=== PATIENT | female | born 1960 | race Caucasian/White ===

== ENCOUNTER 2023-06-26 09:30 | Emergency (ER) | payer MEDICARE, SELFPAY ==
[2023-06-26 09:36] VITALS: BP 143/85; PULSE 86; RESP 15; TEMP 36.7; O2SAT 97; BMI 24.7
--- NOTE | 2023-06-26 09:38 | DI.RAD.S_ITS ---
PROCEDURE: XR CHEST 1V INDICATIONS: chest pain TECHNIQUE: One view of the chest was acquired. COMPARISON: None. FINDINGS: Surgical changes and devices: None. Lungs and pleura: Lungs are clear. No pleural effusions or pneumothorax. Mediastinum: Mediastinal contours appear normal. Heart size is normal. Bones and chest wall: No suspicious bony lesions. Overlying soft tissues appear unremarkable. IMPRESSION: No acute cardiopulmonary abnormality is seen. Dictated by: Slava Garcia M.D. on 06/26/2023 at 10:32 Approved by: Slava Gracia M.D. on 06/26/2023 at 10:33
[2023-06-26 09:55] LABS: Add Manual Diff / Slide Review NO; Basophils Absolute Auto 100 /uL (0-100); Eosinophils Absolute Auto 0 /uL (0-450); Eosinophils Percent Auto 0.7 % (2-4); Hematocrit 40.6 % (36-46); Hemoglobin 14.2 g/dL (12.0-16.0); Lymphocytes Absolute Auto 1100 /uL (1100-4500); Lymphocytes Percent Auto 18.2 % (25-40); Mean Corpuscular HGB Conc 34.9 % (30-36); Mean Corpuscular Hemoglobin 34.6 PG (26-34); Mean Corpuscular Volume 99.2 fL (80-100); Monocytes Absolute Auto 500 /uL (0-900); Monocytes Percent Auto 8.1 % (3-14); Neutrophils Absolute Auto 4200 /uL (1500-7000); Platelet Count 348 X10^3/uL (150-400); Red Blood Cell Count 4.09 X10^6/uL (4.0-5.2); Red Cell Distribution Width 13.1 % (11.6-14.8); White Blood Cell Count 5.9 X10^3/uL (4.5-11.0)
[2023-06-26 10:05] LABS: Prothrombin Time 11.9 SECONDS (9.4-12.5)
[2023-06-26 10:07] LABS: PTT Partial Thromboplastin Tim 31 SECONDS (25.1-36.5)
[2023-06-26 10:10] LABS: Alanine Aminotransferase 23 IU/L (<35); Albumin 4.4 g/dL (3.5-5.0); Albumin Globulin Ratio 1.2 (1.0-2.8); Alkaline Phosphatase 71 U/L (38-126); Aspartate Aminotransferase 30 IU/L (14-36); BUN Creatinine Ratio 20.7 (6-22); Bilirubin Total 0.8 mg/dL (0.2-1.3); Blood Urea Nitrogen 18 mg/dL (7-17); Calcium 11.3 mg/dL (8.4-10.2); Carbon Dioxide 27 mmol/L (22-32); Chloride 100 mmol/L (98-107); Creatine Kinase 59 U/L (30-135); Estimated Glomerular Filt Rate > 60 mL/min (>60); Globulin 3.7 g/dL (1.7-4.1); Glucose 103 mg/dL (80-110); HEMOLYSIS < 15 (0-50); Lipase 53 U/L (23-300); Magnesium 1.9 mg/dL (1.6-2.3); Potassium 3.8 mmol/L (3.4-5.1); Sodium 136 mmol/L (137-145); Total Protein 8.1 g/dL (6.3-8.2)
[2023-06-26 10:21] LABS: Troponin I < 0.012 ng/mL (0.01-0.034)
[2023-06-26 12:25] LABS: Troponin I < 0.012 ng/mL (0.01-0.034)
[2023-06-26 13:03] VITALS: BP 125/90; PULSE 72; RESP 21; O2SAT 98
--- NOTE | 2023-06-26 13:15 | ED_ITS ---
HPI - Chest Pain General Chief Complaint: Chest Pain Stated Complaint: high blood pressure Time Seen by Provider: 06/26/23 09:52 Source: patient Mode of arrival: Ambulatory Limitations: no limitations History of Present Illness HPI narrative: This is a 63-year-old female with a history of bipolar disorder and hypertension who arrives by private vehicle. The patient reporting chest pain. She has not having chest pain when seen. She says that she has had episodic chest pain for the last 4 days. Is not exertional in his substernal has not achy character and lasts only for a few minutes. She has a mild cough and is not short of breath. She was also concerned that her blood pressures were high reported she had a home blood pressure of 150 systolic reason light. She has not having fevers. Has a mild cough that is nonproductive. In terms of cardiac risk factors hypertension treated with triamterene hydrochlorothiazide. No elevation in cholesterol no diabetes no family history and no smoking. Related Data Allergies Allergy/AdvReac Type Severity Reaction Status Date / Time Penicillins Allergy Verified 06/26/23 09:36 codeine AdvReac Verified 06/26/23 09:36 Patient History Social History Smoking Status: Unknown if ever smoked Smoking Status: Unknown if ever smoked alcohol intake frequency: holidays/special occasions only Substance Use Type: marijuana Exam Initial Vital Signs Initial Vital Signs: Vital Signs Temperature 98.1 F 06/26/23 09:36 Pulse Rate 86 06/26/23 09:36 Respiratory Rate 15 06/26/23 09:36 Blood Pressure 143/85 H 06/26/23 09:36 Pulse Oximetry 97 06/26/23 09:36 Oxygen Delivery Method Room Air 06/26/23 09:36 Const General: No acute distress HENMT Head: normocephalic and atraumatic Neck Neck: supple and No JVD Resp Effort & Inspection: normal respiratory effort and able to speak in complete sentences Auscultation: clear to auscultation bilaterally Cardio Other: Regular rhythm rate no murmur rub or gallop GI Other: Normal bowel sounds soft and nontender Skin Other: Warm and dry Neuro Other: Alert and oriented, appears to have a mild movement disorder Course Orders Ordered: ED Orders 06/26/23 09:38 XR chest 1V Stat EKG-12 Lead Stat 06/26/23 09:47 Complete Blood Count AUTO DIFF Stat Comprehensive Metabolic Panel Stat Lipase Stat Magnesium Stat PTT Partial Thromboplastin [place] Stat Prothrombin Time INR Stat Troponin & CK Cardiac Panel Stat 06/26/23 11:47 EKG-12 Lead Stat 06/26/23 11:50 Troponin I Stat Vital Signs Vital signs: Vital Signs - 8 hr 06/26/23 09:36 06/26/23 13:03 Temperature 98.1 F Pulse Rate 86 72 Respiratory Rate 15 21 Blood Pressure 143/85 H 125/90 Pulse Oximetry 97 98 Oxygen Delivery Method Room Air Room Air MDM - Chest Pain Lab Data Lab results narrative: CBC with diff CMP are unremarkable troponins are normal x2 06/26/23 09:47 06/26/23 09:47 Labs: Lab Results 06/26/23 06/26/23 Range/Units 09:47 11:50 WBC 5.9 (4.5-11.0) X10^3/uL RBC 4.09 (4.0-5.2) X10^6/uL Hgb 14.2 (12.0-16.0) g/dL Hct 40.6 (36-46) % MCV 99.2 (80-100) fL MCH 34.6 H (26-34) PG MCHC 34.9 (30-36) % RDW 13.1 (11.6-14.8) % Plt Count 348 (150-400) X10^3/uL Neut % (Auto) 72.0 (50-75) % Lymph % (Auto) 18.2 L (25-40) % [place] % (Auto) 8.1 (3-14) % Eos % (Auto) 0.7 L (2-4) % Baso % (Auto) 1.0 (0-2) % Neut # (Auto) 4200 (3333-4262) /uL Lymph # (Auto) 1100 (0713-7531) /uL [place] # (Auto) 500 (0-900) /uL Eos # (Auto) 0 (0-450) /uL Baso # (Auto) 100 (0-100) /uL PT 11.9 (9.4-12.5) SECONDS INR 1.0 (0.9-1.3) APTT 31 (25.1-36.5) SECONDS Sodium 136 L (137-145) mmol/L Potassium 3.8 (3.4-5.1) mmol/L Chloride 100 (98-107) mmol/L Carbon Dioxide 27 (22-32) mmol/L BUN 18 H (7-17) mg/dL Creatinine 0.87 (0.52-1.04) mg/dL Estimated GFR > 60 (>60) mL/min BUN/Creatinine Ratio 20.7 (6-22) Glucose 103 (80-110) mg/dL Calcium 11.3 H (8.4-10.2) mg/dL Magnesium 1.9 (1.6-2.3) mg/dL Total Bilirubin 0.8 (0.2-1.3) mg/dL AST 30 (14-36) IU/L ALT 23 (<35) IU/L Alkaline Phosphatase 71 (38-126) U/L Total Creatine Kinase 59 (30-135) U/L Troponin I < 0.012 < 0.012 (0.01-0.034) ng/mL Total Protein 8.1 (6.3-8.2) g/dL Albumin 4.4 (3.5-5.0) g/dL Globulin 3.7 (1.7-4.1) g/dL Albumin/Globulin Ratio 1.2 (1.0-2.8) Lipase 53 (23-300) U/L Imaging Data Chest x-ray: My Impression: No acute disease Radiologist's Impression: Radiology report indicates no acute disease MDM Narrative Medical decision making narrative: 63-year-old female with minimal cardiac risk factors presenting with chest pain that is atypical in his much it is not exertional and lasts only for a few minutes. Workup is otherwise reassuring, presentation does not suggest pulmonary embolism. No evidence of a pneumonia. Heart score is low risk at 3. Believe that this is an appropriate situation for her to follow up as an outpatient. I did advise her specifically that if she is having prolonged pain she should return to the emergency department. Discharge Plan Departure Patient Disposition: Home Clinical Impression: Atypical chest pain Instructions: DI for Atypical Chest Pain Activity Restrictions/Additional Instructions: Emergency department workup today is reassuring. I think it is safe for you to go home you can continue your previous home medications and follow up soon with your primary care provider. If you are having increasing chest pain such as pain that lasts for more than just a few minutes return to the emergency department. If you are having active chest pain call an ambulance. Stand Alone Forms: Patient Portal/API
== END 2023-06-26 13:29 | disposition home or self-care (01) ==
PROVIDERS: Emergency Provider Emergency Medicine
DX: R07.89 Other chest pain (principal)
CPT/HCPCS: 36415; 71045; 80053; 82550; 83690; 83735; 84484; 85025; 85610; 85730; 93005; 93010; 99284

== ENCOUNTER 2023-10-09 10:57 | Emergency (ER) | payer MEDICARE, SELFPAY ==
[2023-10-09] VITALS (9 sets, daily range): BP systolic 124–144; BP diastolic 72–85; PULSE 76–90; RESP 12–33; O2SAT 97–98
[2023-10-09 11:30] LABS: Add Manual Diff / Slide Review NO; Basophils Absolute Auto 100 /uL (0-100); Basophils Percent Auto 0.8 % (0-2); Eosinophils Absolute Auto 100 /uL (0-450); Eosinophils Percent Auto 1.2 % (2-4); Hematocrit 38.9 % (36-46); Hemoglobin 13.1 g/dL (12.0-16.0); Lymphocytes Absolute Auto 1300 /uL (1100-4500); Lymphocytes Percent Auto 14.4 % (25-40); Mean Corpuscular HGB Conc 33.6 % (30-36); Mean Corpuscular Hemoglobin 33.3 PG (26-34); Mean Corpuscular Volume 99.1 fL (80-100); Monocytes Absolute Auto 600 /uL (0-900); Neutrophils Absolute Auto 6800 /uL (1500-7000); Neutrophils Percent Auto 76.6 % (50-75); Platelet Count 380 X10^3/uL (150-400); Red Blood Cell Count 3.92 X10^6/uL (4.0-5.2); Red Cell Distribution Width 13.2 % (11.6-14.8); White Blood Cell Count 8.8 X10^3/uL (4.5-11.0)
[2023-10-09 11:43] LABS: Alanine Aminotransferase 30 IU/L (<35); Albumin 4.8 g/dL (3.5-5.0); Albumin Globulin Ratio 1.4 (1.0-2.8); Alkaline Phosphatase 67 U/L (38-126); Aspartate Aminotransferase 39 IU/L (14-36); BUN Creatinine Ratio 37.2 (6-22); Bilirubin Total 0.9 mg/dL (0.2-1.3); Blood Urea Nitrogen 29 mg/dL (7-17); Calcium 10.5 mg/dL (8.4-10.2); Carbon Dioxide 29 mmol/L (22-32); Chloride 100 mmol/L (98-107); Creatine Kinase 64 U/L (30-135); Estimated Glomerular Filt Rate > 60 mL/min (>60); Globulin 3.4 g/dL (1.7-4.1); Glucose 69 mg/dL (80-110); HEMOLYSIS 97 (0-50); Potassium 4.4 mmol/L (3.4-5.1); Sodium 133 mmol/L (137-145); Total Protein 8.2 g/dL (6.3-8.2)
[2023-10-09 11:54] LABS: Troponin I < 0.012 ng/mL (0.01-0.034)
--- NOTE | 2023-10-09 15:09 | ED_ITS ---
HPI - Neuro Symptoms/Deficit General Chief Complaint: Neuro Symptoms/Deficit Stated Complaint: slow/slurred/speech PCP ref. Time Seen by Provider: 10/09/23 15:09 Source: patient Mode of arrival: Family Vehicle History of Present Illness HPI Narrative: 63-year-old woman with a history of bipolar disorder and hypertension who was on a number of psychiatric medications including 20 mg of olanzapine, fluoxetine, duloxetine, amitriptyline followed by a psychiatric nurse practitioner see Mar. Over the last month she has been having increasing difficulties with speech, increasing uncontrolled movements around her mouth consistent with developing tardive dyskinesia and complains that her gait has been off. She feels that she is unsteady as she takes a step forward. Her mood has been stable otherwise. She does not note any recent viral syndromes, no complaints of chest pain, orthopnea, lower extremity edema, nausea, vomiting, diarrhea. Has not been having headaches. On Anticoagulants: No Related Data Allergies Allergy/AdvReac Type Severity Reaction Status Date / Time Penicillins Allergy Verified 06/26/23 09:36 codeine AdvReac Verified 06/26/23 09:36 Review of Systems Review of Systems Narrative: Pertinent positive and negative findings as per HPI Hematologic/Lymphatic On Anticoagulants: No Patient History Medical History (Updated 10/09/23 @ 16:57 by Violeta Schwartz MD) Hyperlipidemia Bipolar disorder Social History Smoking Status: Unknown if ever smoked Smoking Status: Unknown if ever smoked alcohol intake frequency: holidays/special occasions only Substance Use Type: marijuana Exam Initial Vital Signs Initial Vital Signs: Vital Signs Pulse Rate 81 10/09/23 11:00 Respiratory Rate 19 10/09/23 11:00 Blood Pressure 144/85 H 10/09/23 11:00 Pulse Oximetry 98 10/09/23 11:00 Oxygen Delivery Method Room Air 10/09/23 11:00 General: Healthy appearing, somewhat flat affect but able to give a complete and coherent history. HEENT: Moist mucous membranes, normal sclera with reactive pupils, rhythmic uncontrolled movements around her mouth consistent with tardive dyskinesia. Slight findings including the tongue as well Respiratory: Lungs are clear to auscultation, no wheezing no rales no rhonchi. Full and symmetrical air movement Cardiac: Regular rate and rhythm no murmurs no bruits Abdomen: Soft, nontender, good bowel tones, no flank pain Skin: Warm and dry, no rashes Neurologic: Involuntary movements around her mouth, she is able to move all extremities. Has a slightly wide-based gait Extremities: No trauma, well perfused Psych: Cooperative, appropriate insight and affect Course Orders Ordered: ED Orders 10/09/23 11:13 Complete Blood Count AUTO DIFF Stat Comprehensive Metabolic Panel Stat Troponin & CK Cardiac Panel Stat EKG-12 Lead Stat 10/09/23 11:15 Urinalysis and Microscopic Stat 10/09/23 15:17 MR head/brain wo con Stat Vital Signs Vital signs: Vital Signs - 8 hr 10/09/23 11:00 10/09/23 11:05 10/09/23 11:05 Pulse Rate 81 90 Respiratory Rate 19 Blood Pressure 144/85 H 144/85 H Pulse Oximetry 98 Oxygen Delivery Method Room Air 10/09/23 11:30 10/09/23 11:30 10/09/23 12:00 Pulse Rate 83 79 Respiratory Rate 18 23 Blood Pressure 129/82 Pulse Oximetry 98 97 Oxygen Delivery Method 10/09/23 12:00 10/09/23 12:30 10/09/23 12:30 Pulse Rate 76 Respiratory Rate 12 Blood Pressure 124/81 127/77 Pulse Oximetry 98 Oxygen Delivery Method 10/09/23 13:00 10/09/23 13:00 10/09/23 13:30 Pulse Rate 76 78 Respiratory Rate 33 H Blood Pressure 129/72 Pulse Oximetry 97 98 Oxygen Delivery Method 10/09/23 13:30 10/09/23 14:00 10/09/23 14:00 Pulse Rate 79 Respiratory Rate 21 Blood Pressure 132/80 131/79 Pulse Oximetry 98 Oxygen Delivery Method 10/09/23 14:30 10/09/23 14:30 Pulse Rate 80 Respiratory Rate Blood Pressure 128/84 Pulse Oximetry 98 Oxygen Delivery Method Room Air MDM - Neuro Symptoms/Deficit Lab Data 10/09/23 11:13 10/09/23 11:13 Labs: Lab Results 10/09/23 Range/Units 11:13 WBC 8.8 (4.5-11.0) X10^3/uL RBC 3.92 L (4.0-5.2) X10^6/uL Hgb 13.1 (12.0-16.0) g/dL Hct 38.9 (36-46) % MCV 99.1 (80-100) fL MCH 33.3 (26-34) PG MCHC 33.6 (30-36) % RDW 13.2 (11.6-14.8) % Plt Count 380 (150-400) X10^3/uL Neut % (Auto) 76.6 H (50-75) % Lymph % (Auto) 14.4 L (25-40) % [place] % (Auto) 7.0 (3-14) % Eos % (Auto) 1.2 L (2-4) % Baso % (Auto) 0.8 (0-2) % Neut # (Auto) 6800 (7120-6584) /uL Lymph # (Auto) 1300 (1847-4608) /uL [place] # (Auto) 600 (0-900) /uL Eos # (Auto) 100 (0-450) /uL Baso # (Auto) 100 (0-100) /uL Sodium 133 L (137-145) mmol/L Potassium 4.4 (3.4-5.1) mmol/L Chloride 100 (98-107) mmol/L Carbon Dioxide 29 (22-32) mmol/L BUN 29 H (7-17) mg/dL Creatinine 0.78 (0.52-1.04) mg/dL Estimated GFR > 60 (>60) mL/min BUN/Creatinine Ratio 37.2 H (6-22) Glucose 69 L (80-110) mg/dL Calcium 10.5 H (8.4-10.2) mg/dL Total Bilirubin 0.9 (0.2-1.3) mg/dL AST 39 H (14-36) IU/L ALT 30 (<35) IU/L Alkaline Phosphatase 67 (38-126) U/L Total Creatine Kinase 64 (30-135) U/L Troponin I < 0.012 (0.01-0.034) ng/mL Total Protein 8.2 (6.3-8.2) g/dL Albumin 4.8 (3.5-5.0) g/dL Globulin 3.4 (1.7-4.1) g/dL Albumin/Globulin Ratio 1.4 (1.0-2.8) Point of Care Testing Glucose POC 109 Imaging Data MRI brain: Radiologist's Impression: PROCEDURE: MR HEAD/BRAIN WO CON INDICATIONS: Expressive aphasia, ataxia TECHNIQUE: Non-contrast axial T1 spin echo, axial T2 fast spin echo, sagittal and axial FLAIR, coronal T2 fast spin echo, axial gradient echo, axial diffusion and ADC through the brain. COMPARISON: [facility], MR, MR BRAIN WITHOUT CONTRAST, 06/20/2017, 16:35. FINDINGS: Image quality: Excellent. CSF spaces: Ventricles appear symmetric in size and shape. Basal cisterns are patent. No extra-axial fluid collections. Brain: No intracranial bleeds or mass effects. There is cerebral volume loss for age. There are periventricular and deep white matter chronic small vessel ischemic changes. Brainstem appears normal. Diffusion-weighted images show no acute infarct. No chronic ischemic insults. Normal intravascular flow voids are present. Skull and face: Calvarial bone marrow is normal in signal. Orbits are normal. Sinuses: Sinuses and mastoids are clear. IMPRESSION: No findings of acute or subacute infarction can be seen. Dictated by: Gray Khan M.D. on 10/09/2023 at 15:08 MDM Narrative Medical decision making narrative: CC: Progressive speech difficulties with worsening aphasia. Also noticing increased tardive dyskinesia type movements Complicating co-morbidities: Bipolar disorder currently on large doses of psychiatric medications with overlapping effects including olanzapine, fluoxetine, duloxetine, amitriptyline Data collected from: patient, daughter Medical records reviewed: Notes from the ER regarding atypical chest pain evaluation in June of this year reviewed Differential considered: Stroke, medicine toxicity, tardive dyskinesia development Exam documented above, pertinent findings include: Patient is cooperative. Fairly classic uncontrolled mouth and tongue movements consistent with tardive dyskinesia. Neurologic exam shows difficulty with speech fluency and word finding. Slightly wide-based gait. No paresthesias or weakness or appreciated Lab Test results independently reviewed as above. Pertinent findings: CBC is unremarkable Chemistries show slightly elevated calcium at 10.5. Normal creatinine, slight elevation of AST at 39. Troponin is undetectable Independently reviewed EKG: Sinus rhythm at a rate of 84. Normal intervals, normal axis. No acute ischemic changes Imaging studies independently reviewed: MRI of the brain does not suggest any acute infarct Discussion: 63-year-old woman with progressive dysphagia, dysarthria and involuntary movements of the mouth and tongue. No evidence of acute infection or infarct. Most likely explanation is adverse reaction to higher doses of psychiatric medications. Most likely contender is her olanzapine currently at 20 mg. We will ask her to hold this over the next 48 hours. This means that she will restart at half the dose on the 10 of October. I have asked her to keep track of symptoms over that timeframe. She will need to reschedule an appointment with her psychiatric nurse practitioner. We will also need to discuss medications to help with the developing tardive dyskinesia. Questions are answered and she is safe for discharge Discharge Plan Departure Patient Disposition: Home Clinical Impression: Drug-induced tardive dystonia Adverse drug reaction Qualifiers: Encounter type: initial encounter Qualified Code(s): T50.905A - Adverse effect of unspecified drugs, medicaments and biological substances, initial encounter Activity Restrictions/Additional Instructions: Thank you for coming in today Your workup was actually very reassuring. There was no evidence of metabolic abnormalities, and no evidence of acute stroke based on your MRI. Unfortunately, I think this means that your olanzapine is causing significant symptoms including the worsening movements around her mouth and tongue and the speech difficulties. I am going to suggest that you hold the olanzapine on the and the . Please restart on the at half the dose. Encourage you to keep track of all of your symptoms so that you can have a better idea of medication dosing and symptoms and how they are related. You need to schedule an appointment with your psychiatric nurse practitioner to review additional medications and treatment possibilities for the tardive dyskinesia that you seemed to be developing. If you find that you are getting worse or develop any new symptoms, please feel free to return to the emergency department for further evaluation. Referrals: *[facility]* [Primary Care Provider] - Stand Alone Forms: Patient Portal/API
--- NOTE | 2023-10-09 15:17 | DI.MRI.S_ITS ---
PROCEDURE: MR HEAD/BRAIN WO CON INDICATIONS: Expressive aphasia, ataxia TECHNIQUE: Non-contrast axial T1 spin echo, axial T2 fast spin echo, sagittal and axial FLAIR, coronal T2 fast spin echo, axial gradient echo, axial diffusion and ADC through the brain. COMPARISON: [facility], MR, MR BRAIN WITHOUT CONTRAST, 06/20/2017, 16:35. FINDINGS: Image quality: Excellent. CSF spaces: Ventricles appear symmetric in size and shape. Basal cisterns are patent. No extra-axial fluid collections. Brain: No intracranial bleeds or mass effects. There is cerebral volume loss for age. There are periventricular and deep white matter chronic small vessel ischemic changes. Brainstem appears normal. Diffusion-weighted images show no acute infarct. No chronic ischemic insults. Normal intravascular flow voids are present. Skull and face: Calvarial bone marrow is normal in signal. Orbits are normal. Sinuses: Sinuses and mastoids are clear. IMPRESSION: No findings of acute or subacute infarction can be seen. Dictated by: Gray Khan M.D. on 10/09/2023 at 15:08 Approved by: Gray Khan M.D. on 10/09/2023 at 15:10
== END 2023-10-09 17:11 | disposition home or self-care (01) ==
PROVIDERS: Emergency Provider Emergency Medicine
DX: G24.01 Drug induced subacute dyskinesia (principal); T43.595A Adverse effect of other antipsychotics and neuroleptics, initial encounter
CPT/HCPCS: 36415; 70551; 80053; 82550; 82962; 84484; 85025; 93005; 99283